=== PATIENT | male | born 1985 | race African-American/Black ===

== ENCOUNTER 2021-09-06 10:46 | Emergency (ER) | payer MEDICAID ==
[~2021-09-06] VITALS: Ht 182.9 cm; Wt 99.8 kg
--- NOTE | 2021-09-06 10:46 | NUR ---
PT BIB SELF "Having Suicidal Thoughts- went to [facility] was sent here for clearance" PT IS AAOX4, NOT IN RESPIRATORY DISTRESS, V/S STABLE, KEPT RESTED AND COMFORTABLE. WILL CONTINUE TO MONITOR.
--- NOTE | 2021-09-06 10:55 | NUR ---
SEEN AND EXMAINED BY .
--- NOTE | 2021-09-06 11:00 | NUR ---
URINE COLLECTED AND SENT TO LAB
--- NOTE | 2021-09-06 11:06 | NUR ---
COVID SWAB DONE AND SENT TO LAB
[2021-09-06 11:19] LABS: BASOPHILS % (AUTO) 1.2 % (0.0-2.0); EOSINOPHILS % (AUTO) 1.7 % (0.0-6.0); HEMATOCRIT 38 % (39-51); HEMOGLOBIN 12.4 g/dL (13.5-17.5); LYMPHOCYTES # (AUTO) 1.5 K/uL (0.8-4.8); LYMPHOCYTES % (AUTO) 36.8 % (20.0-44.0); MEAN CORPUSCULAR HGB CONC 32 g/dl (31.0-36.0); MEAN CORPUSCULAR VOLUME 84 fL (80-96); MONOCYTES # (AUTO) 0.4 K/uL (0.1-1.30); MONOCYTES % (AUTO) 10.5 % (2.0-12.0); NEUTROPHILS # (AUTO) 2.1 K/uL (1.8-8.9); NEUTROPHILS % (AUTO) 49.8 % (43.0-81.0); PLATELET COUNT (AUTO) 201 K/uL (150-450); RED BLOOD CELL COUNT(AUTO) 4.54 MIL/uL (4.5-6.0); WHITE BLOOD COUNT (AUTO) 4.2 K/uL (4.3-11.0)
[2021-09-06 11:24] LABS: BILIRUBIN,URINE NEGATIVE (NEGATIVE); COLOR,URINE YELLOW (YELLOW); LEUKOCYTE ESTERASE ,URINE NEGATIVE (NEGATIVE); NITRITE, URINE NEGATIVE (NEGATIVE); PH,URINE 8.5 (5.0-8.0); PROTEIN,URINE NEGATIVE (NEGATIVE); UGLUCOSE NEGATIVE (NEGATIVE); UROBILINOGEN,URINE 0.2 EU/dL (0.2)
[2021-09-06 11:38] LABS: CALCIUM, SERUM 8.6 mg/dL (8.5-10.1); CARBON DIOXIDE 27 mmol/L (21-32); CHLORIDE 102 mmol/L (98-107); CREATININE 0.9 mg/dL (0.6-1.3); GLUCOSE 114 mg/dL (74-106); POTASSIUM 3.9 mmol/L (3.5-5.1); SODIUM SERUM 137 mmol/L (136-145); UREA NITROGEN, BLOOD 9 mg/dL (7-18)
[2021-09-06 11:46] LABS: ALANINE AMINOTRANSFERASE 43 U/L (12-78); ALBUMIN 3.8 g/dL (3.4-5.0); ALCOHOL, BLOOD < 3 mg/dL (0-0); ALKALINE PHOSPHATASE 60 U/L (46-116); ASPARTATE AMINOTRANSFERASE 26 U/L (15-37); BILIRUBIN,DIRECT 0.1 mg/dL (0.0-0.2); BILIRUBIN,TOTAL 0.3 mg/dL (0.2-1.0); TOTAL PROTEIN, SERUM 7.3 g/dL (6.4-8.2)
[2021-09-06 12:05] LABS: ACETAMINOPHEN 0 ug/ml (10-30)
--- NOTE | 2021-09-06 12:37 | NUR ---
FAXED CLINICALS TO [facility]
--- NOTE | 2021-09-06 13:00 | NUR ---
Lunch Served. Tolerated well. Ate 100%
--- NOTE | 2021-09-06 21:48 | NUR ---
PT ACCEPTED TO [facility] [place] [facility]. DR. BUNN RN IJ, NUMBER FOR REPORT IS [phone] EXT [phone].
--- NOTE | 2021-09-06 22:38 | NUR ---
ETA FOR TRANSPORT IS 60 MINS VIA [facility].
--- NOTE | 2021-09-06 22:57 | NUR ---
REPORT GIVEN TO SANCHEZ AT [facility]
[2021-09-07] VITALS: BP 132/77
--- NOTE | 2021-09-07 | NUR ---
PT PICKED UP BY [facility] FOR TRANSPORT TO [facility]. ALL BELONGINGS AND PT PAPERWORK TRANSFERRED WITH PATIENT.
== END 2021-09-07 00:09 ==
LOC: ER 10:56
DX: R45.851 Suicidal ideations (principal); Z59.00 Homelessness unspecified; Z20.822 Contact with and (suspected) exposure to COVID-19
CPT/HCPCS: 36415; 80048; 80076; 80143; 80307; 80320; 81003; 85025; 87426; 99285; C9803; G0480

== ENCOUNTER 2021-10-17 17:45 | Emergency (ER) | payer MEDICAID ==
[~2021-10-17] VITALS: Ht 185.4 cm; Wt 104.3 kg
[2021-10-17 19:02] LABS: BILIRUBIN,URINE NEGATIVE (NEGATIVE); COLOR,URINE YELLOW (YELLOW); LEUKOCYTE ESTERASE ,URINE NEGATIVE (NEGATIVE); NITRITE, URINE NEGATIVE (NEGATIVE); PH,URINE 7.5 (5.0-8.0); PROTEIN,URINE NEGATIVE (NEGATIVE); UGLUCOSE NEGATIVE (NEGATIVE); UROBILINOGEN,URINE 0.2 EU/dL (0.2)
[2021-10-17 19:17] LABS: CALCIUM, SERUM 8.7 mg/dL (8.5-10.1); CARBON DIOXIDE 28 mmol/L (21-32); CHLORIDE 103 mmol/L (98-107); GLUCOSE 94 mg/dL (74-106); POTASSIUM 4.3 mmol/L (3.5-5.1); SODIUM SERUM 136 mmol/L (136-145); UREA NITROGEN, BLOOD 16 mg/dL (7-18)
[2021-10-17 19:23] LABS: ALANINE AMINOTRANSFERASE 44 U/L (12-78); ALBUMIN 3.9 g/dL (3.4-5.0); ALCOHOL, BLOOD < 3 mg/dL (0-0); ALKALINE PHOSPHATASE 62 U/L (46-116); ASPARTATE AMINOTRANSFERASE 19 U/L (15-37); BILIRUBIN,DIRECT 0.1 mg/dL (0.0-0.2); BILIRUBIN,TOTAL 0.1 mg/dL (0.2-1.0); TOTAL PROTEIN, SERUM 7.3 g/dL (6.4-8.2)
[2021-10-17 19:58] LABS: BASOPHILS % (AUTO) 0.9 % (0.0-2.0); EOSINOPHILS % (AUTO) 1.4 % (0.0-6.0); HEMATOCRIT 41 % (39-51); HEMOGLOBIN 13.2 g/dL (13.5-17.5); LYMPHOCYTES # (AUTO) 2.3 K/uL (0.8-4.8); LYMPHOCYTES % (AUTO) 47.8 % (20.0-44.0); MEAN CORPUSCULAR HGB CONC 32 g/dl (31.0-36.0); MEAN CORPUSCULAR VOLUME 84 fL (80-96); MONOCYTES # (AUTO) 0.4 K/uL (0.1-1.30); MONOCYTES % (AUTO) 9.1 % (2.0-12.0); NEUTROPHILS # (AUTO) 1.9 K/uL (1.8-8.9); NEUTROPHILS % (AUTO) 40.8 % (43.0-81.0); PLATELET COUNT (AUTO) 287 K/uL (150-450); RED BLOOD CELL COUNT(AUTO) 4.95 MIL/uL (4.5-6.0); WHITE BLOOD COUNT (AUTO) 4.8 K/uL (4.3-11.0)
--- NOTE | 2021-10-17 20:00 | NUR ---
PATIENT BIBSELF C/O FEELING SUICIDAL PLAN TO "OVERDOSE ON AMPETHAMINES" WANTS VOL PSYCH ADMIT. PATIENT IS A/O X 4, RR EVEN AND UNLABORED, NO SOB NOTED. PATIENT IN ER BED 18. PT WITH HOSPITAL GOWN, BELONGINGS IN PATIENT LOCKER ROOM. PATIENT VSS. WILL CONTINUE TO MONITOR.
[2021-10-17 20:22] LABS: ACETAMINOPHEN < 0 ug/ml (10-30)
--- NOTE | 2021-10-17 21:45 | NUR ---
FACESHEET AND CLINICALS FAXED TO [facility].
--- NOTE | 2021-10-17 23:45 | NUR ---
PT IS ACCETED AT [facility] UNDER THE CARE OF DR. AGUILAR. CALL [phone] EXT [phone] FOR REPORT.
--- NOTE | 2021-10-18 01:12 | NUR ---
[facility] WILL BE TRANSPORTING THE PT IN ABOUT 30 MINS TO COUNT[facility]
--- NOTE | 2021-10-18 01:22 | NUR ---
REPORT GIVENM TO CELINA AT [facility]
--- NOTE | 2021-10-18 01:50 | NUR ---
[facility] AT BEDSIDE PT BEING TRANSFERRED TO [facility] IN STABLE CONDITION.
--- NOTE | 2021-10-18 03:16 | NUR ---
Raphael sykes in [facility] - 10/18/21 at 0326 by GIDEON URINE COLLECTED AND SENT TO LAB
[2021-10-18 03:27] VITALS: BP 139/77
== END 2021-10-18 02:00 ==
LOC: ER 18:19
DX: R45.851 Suicidal ideations (principal); Z59.00 Homelessness unspecified; F17.200 Nicotine dependence, unspecified, uncomplicated; Z88.0 Allergy status to penicillin; F43.10 Post-traumatic stress disorder, unspecified; F32.A Depression, unspecified; Z20.822 Contact with and (suspected) exposure to COVID-19
CPT/HCPCS: 36415; 80048; 80076; 80143; 80307; 80320; 81003; 85025; 87426; 99285; C9803; G0480

== ENCOUNTER 2021-11-23 12:37 | Emergency (ER) | payer MEDICAID ==
[~2021-11-23] VITALS: Ht 185.4 cm; Wt 99.8 kg
--- NOTE | 2021-11-23 12:44 | NUR ---
DR HENRY AT BEDSIDE
--- NOTE | 2021-11-23 12:45 | NUR ---
URINE SAMPLE COLLECTED AND SENT TO LAB
--- NOTE | 2021-11-23 12:58 | NUR ---
ER PHLEB AT BEDSIDE FOR BLOOD DRAW.
--- NOTE | 2021-11-23 12:58 | NUR ---
COVID SWAB DONE AND SENT
--- NOTE | 2021-11-23 13:10 | NUR ---
SECURITY AT BEDSIDE FOR WANDING.
[2021-11-23 13:17] LABS: BASOPHILS # (AUTO) 0.1 K/uL (0.0-0.2); BASOPHILS % (AUTO) 1.4 % (0.0-2.0); EOSINOPHILS % (AUTO) 2.1 % (0.0-6.0); HEMATOCRIT 41 % (39-51); HEMOGLOBIN 13.2 g/dL (13.5-17.5); LYMPHOCYTES # (AUTO) 1.9 K/uL (0.8-4.8); LYMPHOCYTES % (AUTO) 44.8 % (20.0-44.0); MEAN CORPUSCULAR HGB CONC 33 g/dl (31.0-36.0); MEAN CORPUSCULAR VOLUME 81 fL (80-96); MONOCYTES # (AUTO) 0.3 K/uL (0.1-1.30); MONOCYTES % (AUTO) 8.1 % (2.0-12.0); NEUTROPHILS # (AUTO) 1.8 K/uL (1.8-8.9); NEUTROPHILS % (AUTO) 43.6 % (43.0-81.0); PLATELET COUNT (AUTO) 285 K/uL (150-450); RED BLOOD CELL COUNT(AUTO) 5.01 MIL/uL (4.5-6.0); WHITE BLOOD COUNT (AUTO) 4.2 K/uL (4.3-11.0)
[2021-11-23 13:22] LABS: CALCIUM, SERUM 9.1 mg/dL (8.5-10.1); CARBON DIOXIDE 30 mmol/L (21-32); CHLORIDE 103 mmol/L (98-107); GLUCOSE 92 mg/dL (74-106); POTASSIUM 3.6 mmol/L (3.5-5.1); SODIUM SERUM 141 mmol/L (136-145); UREA NITROGEN, BLOOD 8 mg/dL (7-18)
[2021-11-23 13:25] LABS: BILIRUBIN,URINE NEGATIVE (NEGATIVE); COLOR,URINE YELLOW (YELLOW); LEUKOCYTE ESTERASE ,URINE NEGATIVE (NEGATIVE); NITRITE, URINE NEGATIVE (NEGATIVE); PH,URINE 8.5 (5.0-8.0); PROTEIN,URINE TRACE mg/dl (NEGATIVE); UGLUCOSE NEGATIVE (NEGATIVE); UROBILINOGEN,URINE 0.2 EU/dL (0.2)
[2021-11-23 13:29] LABS: ALANINE AMINOTRANSFERASE 24 U/L (12-78); ALBUMIN 3.9 g/dL (3.4-5.0); ALCOHOL, BLOOD < 3 mg/dL (0-0); ALKALINE PHOSPHATASE 78 U/L (46-116); ASPARTATE AMINOTRANSFERASE 16 U/L (15-37); BILIRUBIN,DIRECT 0.1 mg/dL (0.0-0.2); BILIRUBIN,TOTAL 0.4 mg/dL (0.2-1.0); TOTAL PROTEIN, SERUM 7.2 g/dL (6.4-8.2)
[2021-11-23 13:31] LABS: ACETAMINOPHEN < 2 ug/ml (10-30)
[2021-11-23 13:39] LABS: BACTERIA,URINE Few /HPF (None Seen); RBC,URINE 0-2 /HPF (0-2); SQUAMOUS EPITHELIAL CELL,UR Many /HPF (None Seen); WBC,URINE 0-2 /HPF (0-3)
[2021-11-23] MEDS ORDERED: QUETIAPINE FUMARATE 100 MG TABLET PO STA (15:37)
[2021-11-23] MEDS ORDERED: QUETIAPINE FUMARATE 100 MG TABLET ONE (15:43)
--- NOTE | 2021-11-23 17:41 | NUR ---
DINNER TRAY PROVIDED.
--- NOTE | 2021-11-24 00:42 | NUR ---
FACESHEET AND CLINICALS FAXED TO [facility].
--- NOTE | 2021-11-24 08:40 | NUR ---
CALLED [facility] INTAKE NO BED AVAILABILITY AT THIS TIME CHECK AFTER 1129 SPOKE WITH NOVEMBER.
--- NOTE | 2021-11-24 10:39 | NUR ---
Still no beds available at [facility]. Clinicals are also faxed to [facility] [fax: [phone]].
--- NOTE | 2021-11-24 11:12 | NUR ---
[facility] INTAKE OF [facility], ASKED FOR CLINICALS AND WILL CALL BACK FOR ACCEPTANCE AND SOOM AVAILABILITY
--- NOTE | 2021-11-24 11:43 | NUR ---
PT ACCEPTED TO [facility] UNDER DR. PEREZ PLEASE CALL [phone] FOR REPORT TRANSPORT WILL BE HERE AT 1600
--- NOTE | 2021-11-24 11:56 | NUR ---
LUNCH TRAY PROVIDED. TOLERATED WELL
--- NOTE | 2021-11-24 12:36 | NUR ---
PATIENT VERBALIZED "I'M NOT SUICIDAL NOW, I'M OK"
--- NOTE | 2021-11-24 12:43 | NUR ---
Patient given written and verbal discharge instructions. Patient verbalizes understanding of instructions. Patient is ambulatory with steady gait. Refuses offer of custodial placement. Patient given list of available shelters in surrounding area. All belongings given back to patient. In proper clothing upon discharge. Name band removed
[2021-11-24 12:46] VITALS: BP 134/72
== END 2021-11-24 12:46 | disposition home or self-care (01) ==
LOC: ER 12:45
DX: R45.851 Suicidal ideations (principal); Z59.00 Homelessness unspecified; F32.9 Major depressive disorder, single episode, unspecified; F43.10 Post-traumatic stress disorder, unspecified; Z88.0 Allergy status to penicillin; Z20.822 Contact with and (suspected) exposure to COVID-19
CPT/HCPCS: 36415; 80048; 80076; 80143; 80307; 80320; 81001; 85025; 87426; 99285; C9803; G0480

== ENCOUNTER 2022-01-18 19:20 | Emergency (ER) | payer MEDICAID ==
[~2022-01-18] VITALS: Ht 175.3 cm; Wt 81.6 kg
--- NOTE | 2022-01-18 20:05 | NUR ---
TO ER BED 18. BIBSELF C/O +SI WANTING VOL PSYCH ADMIT. PT CHANGED INTO GOWN. ALL BELONGINGS OBTAINED AND SECURED IN LOCKER. SAFETY PRECAUTIONS IN PLACE. 1:1 SITTER. CONNECTED TO MONITOR. AWAITING MD ERVIN
--- NOTE | 2022-01-18 20:05 | NUR ---
LAB AT BEDSIDE
[2022-01-18 20:17] LABS: BASOPHILS # (AUTO) 0.1 K/uL (0.0-0.2); BASOPHILS % (AUTO) 1.2 % (0.0-2.0); EOSINOPHILS % (AUTO) 3.5 % (0.0-6.0); HEMATOCRIT 41 % (39-51); HEMOGLOBIN 13.5 g/dL (13.5-17.5); LYMPHOCYTES # (AUTO) 2.6 K/uL (0.8-4.8); LYMPHOCYTES % (AUTO) 48.1 % (20.0-44.0); MEAN CORPUSCULAR HGB CONC 33 g/dl (31.0-36.0); MEAN CORPUSCULAR VOLUME 81 fL (80-96); MONOCYTES # (AUTO) 0.4 K/uL (0.1-1.30); MONOCYTES % (AUTO) 6.9 % (2.0-12.0); NEUTROPHILS # (AUTO) 2.2 K/uL (1.8-8.9); NEUTROPHILS % (AUTO) 40.3 % (43.0-81.0); PLATELET COUNT (AUTO) 281 K/uL (150-450); RED BLOOD CELL COUNT(AUTO) 4.98 MIL/uL (4.5-6.0); WHITE BLOOD COUNT (AUTO) 5.4 K/uL (4.3-11.0)
[2022-01-18 20:46] LABS: ALANINE AMINOTRANSFERASE 42 U/L (12-78); ALBUMIN 3.7 g/dL (3.4-5.0); ALCOHOL, BLOOD 9 mg/dL (0-0); ALKALINE PHOSPHATASE 69 U/L (46-116); ASPARTATE AMINOTRANSFERASE 13 U/L (15-37); BILIRUBIN,DIRECT 0.1 mg/dL (0.0-0.2); BILIRUBIN,TOTAL 0.2 mg/dL (0.2-1.0); CALCIUM, SERUM 8.7 mg/dL (8.5-10.1); CARBON DIOXIDE 27 mmol/L (21-32); CHLORIDE 104 mmol/L (98-107); CREATININE 0.8 mg/dL (0.6-1.3); GLUCOSE 96 mg/dL (74-106); POTASSIUM 3.9 mmol/L (3.5-5.1); SODIUM SERUM 140 mmol/L (136-145); TOTAL PROTEIN, SERUM 7.2 g/dL (6.4-8.2); UREA NITROGEN, BLOOD 8 mg/dL (7-18)
[2022-01-18 20:54] LABS: ACETAMINOPHEN < 2 ug/ml (10-30)
[2022-01-18 21:29] LABS: BILIRUBIN,URINE NEGATIVE (NEGATIVE); COLOR,URINE YELLOW (YELLOW); LEUKOCYTE ESTERASE ,URINE NEGATIVE (NEGATIVE); NITRITE, URINE NEGATIVE (NEGATIVE); PROTEIN,URINE NEGATIVE (NEGATIVE); UGLUCOSE NEGATIVE (NEGATIVE); UROBILINOGEN,URINE 0.2 EU/dL (0.2)
--- NOTE | 2022-01-18 21:59 | NUR ---
PT IS SLEEPING, EASILY AROUSABLE. WILL CONTINUE TO MONITOR.
--- NOTE | 2022-01-18 23:03 | NUR ---
CLINICALS FAXED TO [facility]
[2022-01-19 00:58] VITALS: BP 130/76
--- NOTE | 2022-01-19 01:08 | NUR ---
ACCPETED UNDER DR FAY, [facility] SEND PT BEFORE 5AM NUMBER [phone]
--- NOTE | 2022-01-19 01:15 | NUR ---
[facility] ETA 2 HOURS.
--- NOTE | 2022-01-19 01:45 | NUR ---
REPORT GIVEN TO DAVID
--- NOTE | 2022-01-19 03:59 | NUR ---
report given to ems. pt noted with no acute distress.
--- NOTE | 2022-01-19 04:02 | NUR ---
REPORT GIVEN TO EMS AT BEDSIDE
== END 2022-01-19 05:50 | disposition home or self-care (01) ==
LOC: ER 19:21
DX: R45.851 Suicidal ideations (principal); F32.9 Major depressive disorder, single episode, unspecified; F43.10 Post-traumatic stress disorder, unspecified; F15.10 Other stimulant abuse, uncomplicated; Z59.00 Homelessness unspecified; F12.10 Cannabis abuse, uncomplicated; Z88.0 Allergy status to penicillin; Z20.822 Contact with and (suspected) exposure to COVID-19
CPT/HCPCS: 36415; 80048; 80076; 80143; 80307; 80320; 81003; 85025; 87426; 99285; C9803; G0480

== ENCOUNTER 2022-01-29 15:08 | Emergency (ER) | payer MEDICAID ==
[~2022-01-29] VITALS: Ht 185.4 cm; Wt 99.8 kg
--- NOTE | 2022-01-29 15:20 | NUR ---
security personnel at bedside for wanding
--- NOTE | 2022-01-29 15:22 | NUR ---
To ER bed 18, c/o "Suicidal Thoughts - plan to take pills", voluntary to kayli grover, cooperative, aaox3, breathing even and non labored, awaiting md orders
--- NOTE | 2022-01-29 15:23 | NUR ---
urine collected and sent to lab
--- NOTE | 2022-01-29 15:45 | NUR ---
COVID SWAB DONE AND SENT TO LAB
[2022-01-29 15:51] LABS: BASOPHILS # (AUTO) 0.1 K/uL (0.0-0.2); BASOPHILS % (AUTO) 1.1 % (0.0-2.0); EOSINOPHILS % (AUTO) 2.2 % (0.0-6.0); HEMATOCRIT 44 % (39-51); HEMOGLOBIN 14.4 g/dL (13.5-17.5); LYMPHOCYTES # (AUTO) 2.1 K/uL (0.8-4.8); LYMPHOCYTES % (AUTO) 41.2 % (20.0-44.0); MEAN CORPUSCULAR HGB CONC 33 g/dl (31.0-36.0); MEAN CORPUSCULAR VOLUME 83 fL (80-96); MONOCYTES # (AUTO) 0.4 K/uL (0.1-1.30); NEUTROPHILS # (AUTO) 2.3 K/uL (1.8-8.9); NEUTROPHILS % (AUTO) 46.5 % (43.0-81.0); PLATELET COUNT (AUTO) 248 K/uL (150-450)
[2022-01-29 16:08] LABS: BILIRUBIN,URINE NEGATIVE (NEGATIVE); COLOR,URINE YELLOW (YELLOW); LEUKOCYTE ESTERASE ,URINE NEGATIVE (NEGATIVE); NITRITE, URINE NEGATIVE (NEGATIVE); PROTEIN,URINE NEGATIVE (NEGATIVE); UGLUCOSE NEGATIVE (NEGATIVE); UROBILINOGEN,URINE 0.2 EU/dL (0.2)
[2022-01-29 16:11] LABS: CALCIUM, SERUM 8.9 mg/dL (8.5-10.1); CARBON DIOXIDE 30 mmol/L (21-32); CHLORIDE 102 mmol/L (98-107); CREATININE 0.9 mg/dL (0.6-1.3); GLUCOSE 84 mg/dL (74-106); POTASSIUM 4.2 mmol/L (3.5-5.1); SODIUM SERUM 138 mmol/L (136-145); UREA NITROGEN, BLOOD 15 mg/dL (7-18)
[2022-01-29 16:13] LABS: ALANINE AMINOTRANSFERASE 27 U/L (12-78); ALBUMIN 3.9 g/dL (3.4-5.0); ALKALINE PHOSPHATASE 79 U/L (46-116); ASPARTATE AMINOTRANSFERASE 20 U/L (15-37); BILIRUBIN,DIRECT 0.1 mg/dL (0.0-0.2); BILIRUBIN,TOTAL 0.3 mg/dL (0.2-1.0); TOTAL PROTEIN, SERUM 7.6 g/dL (6.4-8.2)
[2022-01-29 16:14] LABS: ALCOHOL, BLOOD < 3 mg/dL (0-0)
--- NOTE | 2022-01-29 18:25 | NUR ---
COVID SWAB DONE AND SENT TO LAB
[2022-01-29 18:42] VITALS: BP 139/78
--- NOTE | 2022-01-29 20:03 | NUR ---
FAXED FACESHEET AND CLINICALS TO [facility] INTAKE
--- NOTE | 2022-01-30 00:02 | NUR ---
PT ACCEPTED AT [facility] UNDER THE CARE OF DR. ORTEGA. CALL [phone] FOR REPORT.
--- NOTE | 2022-01-30 00:04 | NUR ---
75-9O MIN ETA FROM [facility]
--- NOTE | 2022-01-30 00:06 | NUR ---
REPORT GIVEN TO [facility] HERNANDEZ FOR [facility]
--- NOTE | 2022-01-30 01:30 | NUR ---
[facility] AT BEDSIDE FOR PT TRANSPORT TO [facility] IN STABLE CONDITION. PT IS AMBULATORY. ALL BELONGINGS GIVEN TO COMMUNITY SERVICE DIRECTOR. REPORT GIVEN WELL.
== END 2022-01-30 01:44 ==
LOC: ER 15:11
DX: R45.851 Suicidal ideations (principal); Z59.00 Homelessness unspecified; F32.A Depression, unspecified; F43.10 Post-traumatic stress disorder, unspecified; F41.9 Anxiety disorder, unspecified
CPT/HCPCS: 36415; 80048; 80076; 80143; 80307; 80320; 81003; 85025; 87426; 99285; C9803; G0480

== ENCOUNTER 2022-02-21 02:03 | Emergency (ER) | payer MEDICAID ==
[~2022-02-21] VITALS: Ht 185.4 cm; Wt 90.7 kg
--- NOTE | 2022-02-21 04:11 | NUR ---
PATIENT BIBSELF C/O +SI WITH NO PLAN, LOOKING FOR VOLUNTARY PSYCH ADMIT. PATIENT TAKEN TO ER BED 18. PATIENT VSS, NO SOB NOTED, RR EVEN AND UNLABORED. NO ACUTE DISTRESS NOTED. ER EMT, REVENUE COORDINATOR ER SECURITY AT BEDSIDE FOR WANDING. PATIENT BELONGINGS TAKEN AND PLACED IN LOCKER. PATIENT PLACED IN HOSPITAL. WILL CONTINUE TO MONITOR.
--- NOTE | 2022-02-21 04:15 | NUR ---
URINE COLLECTED SENT TO LAB
--- NOTE | 2022-02-21 04:18 | NUR ---
COVID SWAB COLLECTED AND SENT TO LAB
[2022-02-21 06:05] LABS: BASOPHILS # (AUTO) 0.1 K/uL (0.0-0.2); EOSINOPHILS % (AUTO) 2.6 % (0.0-6.0); HEMATOCRIT 40 % (39-51); HEMOGLOBIN 13.3 g/dL (13.5-17.5); LYMPHOCYTES # (AUTO) 2.7 K/uL (0.8-4.8); LYMPHOCYTES % (AUTO) 41.1 % (20.0-44.0); MEAN CORPUSCULAR HGB CONC 33 g/dl (31.0-36.0); MEAN CORPUSCULAR VOLUME 83 fL (80-96); MONOCYTES # (AUTO) 0.8 K/uL (0.1-1.30); MONOCYTES % (AUTO) 11.4 % (2.0-12.0); NEUTROPHILS # (AUTO) 2.9 K/uL (1.8-8.9); NEUTROPHILS % (AUTO) 43.9 % (43.0-81.0); PLATELET COUNT (AUTO) 216 K/uL (150-450); RED BLOOD CELL COUNT(AUTO) 4.84 MIL/uL (4.5-6.0); WHITE BLOOD COUNT (AUTO) 6.6 K/uL (4.3-11.0)
[2022-02-21 06:18] LABS: BILIRUBIN,URINE SMALL (NEGATIVE); COLOR,URINE ORANGE (YELLOW); LEUKOCYTE ESTERASE ,URINE NEGATIVE (NEGATIVE); NITRITE, URINE NEGATIVE (NEGATIVE); PH,URINE 6.5 (5.0-8.0); PROTEIN,URINE 30 mg/dl (NEGATIVE); UGLUCOSE NEGATIVE (NEGATIVE); UROBILINOGEN,URINE 0.2 EU/dL (0.2)
[2022-02-21 06:37] LABS: BACTERIA,URINE Few /HPF (None Seen); RBC,URINE 0-2 /HPF (0-2)
[2022-02-21 06:46] LABS: ALANINE AMINOTRANSFERASE 39 U/L (12-78); ALBUMIN 4.4 g/dL (3.4-5.0); ALKALINE PHOSPHATASE 83 U/L (46-116); ASPARTATE AMINOTRANSFERASE 66 U/L (15-37); BILIRUBIN,DIRECT 0.2 mg/dL (0.0-0.2); CARBON DIOXIDE 25 mmol/L (21-32); CHLORIDE 100 mmol/L (98-107); CREATININE 1.1 mg/dL (0.6-1.3); GLUCOSE 93 mg/dL (74-106); POTASSIUM 3.3 mmol/L (3.5-5.1); SODIUM SERUM 137 mmol/L (136-145); UREA NITROGEN, BLOOD 15 mg/dL (7-18)
[2022-02-21 06:54] LABS: ACETAMINOPHEN 0 ug/ml (10-30); ALCOHOL, BLOOD < 3 mg/dL (0-0)
--- NOTE | 2022-02-21 09:25 | NUR ---
FAXED CLINICALS TO [facility] INTAKE.
[2022-02-21 10:20] VITALS: BP 127/77
--- NOTE | 2022-02-21 10:27 | NUR ---
patient picked up by [facility] in no distress.
== END 2022-02-21 10:27 ==
LOC: ER 02:11
DX: R45.851 Suicidal ideations (principal); Z59.00 Homelessness unspecified; Z88.0 Allergy status to penicillin; Z86.59 Personal history of other mental and behavioral disorders; Z20.822 Contact with and (suspected) exposure to COVID-19
CPT/HCPCS: 99285; 85025; 80048; 87086; 80076; 81001; 36415; 87426; 80143; 80320; 80307; C9803; G0480

== ENCOUNTER 2022-03-06 23:56 | Emergency (ER) | payer MEDICAID ==
[~2022-03-06] VITALS: Ht 177.8 cm; Wt 83.9 kg
[2022-03-07] MEDS ORDERED: OLANZAPINE 5 MG TABLET ONE (01:47)
--- NOTE | 2022-03-07 01:50 | NUR ---
URINE SAMPLE COLLECTED AND SENT TO LAB
--- NOTE | 2022-03-07 01:50 | NUR ---
COVID SWAB COLLECTED AND SENT TO LAB
[2022-03-07] MEDS ORDERED: OLANZAPINE 5 MG TABLET PO ONE (02:00)
[2022-03-07 02:41] LABS: BASOPHILS # (AUTO) 0.1 K/uL (0.0-0.2); BASOPHILS % (AUTO) 1.2 % (0.0-2.0); EOSINOPHILS % (AUTO) 4.9 % (0.0-6.0); HEMATOCRIT 38 % (39-51); HEMOGLOBIN 12.3 g/dL (13.5-17.5); LYMPHOCYTES # (AUTO) 2.4 K/uL (0.8-4.8); LYMPHOCYTES % (AUTO) 40.6 % (20.0-44.0); MEAN CORPUSCULAR HGB CONC 33 g/dl (31.0-36.0); MEAN CORPUSCULAR VOLUME 83 fL (80-96); MONOCYTES # (AUTO) 0.6 K/uL (0.1-1.30); MONOCYTES % (AUTO) 10.8 % (2.0-12.0); NEUTROPHILS # (AUTO) 2.5 K/uL (1.8-8.9); NEUTROPHILS % (AUTO) 42.5 % (43.0-81.0); PLATELET COUNT (AUTO) 221 K/uL (150-450); RED BLOOD CELL COUNT(AUTO) 4.53 MIL/uL (4.5-6.0); WHITE BLOOD COUNT (AUTO) 5.8 K/uL (4.3-11.0)
[2022-03-07 02:42] LABS: BILIRUBIN,URINE NEGATIVE (NEGATIVE); COLOR,URINE YELLOW (YELLOW); LEUKOCYTE ESTERASE ,URINE NEGATIVE (NEGATIVE); NITRITE, URINE NEGATIVE (NEGATIVE); PH,URINE 6.5 (5.0-8.0); PROTEIN,URINE NEGATIVE (NEGATIVE); UGLUCOSE NEGATIVE (NEGATIVE); UROBILINOGEN,URINE 0.2 EU/dL (0.2)
[2022-03-07 03:02] LABS: CARBON DIOXIDE 28 mmol/L (21-32); CHLORIDE 101 mmol/L (98-107); CREATININE 1.1 mg/dL (0.6-1.3); GLUCOSE 113 mg/dL (74-106); POTASSIUM 3.5 mmol/L (3.5-5.1); SODIUM SERUM 136 mmol/L (136-145); UREA NITROGEN, BLOOD 10 mg/dL (7-18)
[2022-03-07 03:08] LABS: ALANINE AMINOTRANSFERASE 39 U/L (12-78); ALBUMIN 3.3 g/dL (3.4-5.0); ALKALINE PHOSPHATASE 72 U/L (46-116); ASPARTATE AMINOTRANSFERASE 35 U/L (15-37); BILIRUBIN,DIRECT 0.1 mg/dL (0.0-0.2); BILIRUBIN,TOTAL 0.4 mg/dL (0.2-1.0); TOTAL PROTEIN, SERUM 6.4 g/dL (6.4-8.2)
[2022-03-07 03:09] LABS: ACETAMINOPHEN 0 ug/ml (10-30); ALCOHOL, BLOOD < 3 mg/dL (0-0)
--- NOTE | 2022-03-07 03:48 | NUR ---
FACESHEET AND CLINICALS FAXED TO [facility].
--- NOTE | 2022-03-07 05:13 | NUR ---
PT ACCEPTED TO [facility] BY DR EMMANUEL. # FOR REPORT [phone]
--- NOTE | 2022-03-07 05:52 | NUR ---
[facility] CALLED FOR BLS TO [facility] ETA 60-70 MIN
--- NOTE | 2022-03-07 06:11 | NUR ---
REPORT GIVEN TO DAVID BECKWITH FOR CONTINUATION OF CARE.
[2022-03-07 07:40] VITALS: BP 136/74
--- NOTE | 2022-03-07 09:50 | NUR ---
PICKED UP BY TRANSPORT IN STABLE CONDITION
== END 2022-03-07 10:11 ==
LOC: ER 03-07 00:07
DX: R45.851 Suicidal ideations (principal); F19.10 Other psychoactive substance abuse, uncomplicated; F32.A Depression, unspecified; F43.10 Post-traumatic stress disorder, unspecified; Z59.00 Homelessness unspecified; Z20.822 Contact with and (suspected) exposure to COVID-19
CPT/HCPCS: 99285; 85025; 80048; 80076; 81003; 36415; 87426; 80143; 80320; 80307; C9803; G0480

== ENCOUNTER 2022-03-20 09:30 | Emergency (ER) | payer MEDICAID ==
[~2022-03-20] VITALS: Ht 185.4 cm; Wt 102.1 kg
--- NOTE | 2022-03-20 09:58 | NUR ---
BIBS FOR VOLUNTARY ADMISSION TO [facility] WITH SI PLAN TO OD ON PILLS. TO ER BED 18, HOOKED TO MONITOR, CHANGED TO HOSP GOWN, WARM BLANKET PROVIDED. SUICIDE PRECAUTIONS APPLIED. AWAITING MD ERVIN.
--- NOTE | 2022-03-20 10:00 | NUR ---
SECURITY AT BEDSIDE FOR WANDING
[2022-03-20 10:24] LABS: BASOPHILS # (AUTO) 0.1 K/uL (0.0-0.2); BASOPHILS % (AUTO) 1.2 % (0.0-2.0); EOSINOPHILS % (AUTO) 1.8 % (0.0-6.0); HEMATOCRIT 40 % (39-51); LYMPHOCYTES # (AUTO) 2.5 K/uL (0.8-4.8); LYMPHOCYTES % (AUTO) 52.3 % (20.0-44.0); MEAN CORPUSCULAR HGB CONC 32 g/dl (31.0-36.0); MEAN CORPUSCULAR VOLUME 85 fL (80-96); MONOCYTES # (AUTO) 0.3 K/uL (0.1-1.30); MONOCYTES % (AUTO) 6.7 % (2.0-12.0); NEUTROPHILS # (AUTO) 1.8 K/uL (1.8-8.9); PLATELET COUNT (AUTO) 273 K/uL (150-450); RED BLOOD CELL COUNT(AUTO) 4.78 MIL/uL (4.5-6.0); WHITE BLOOD COUNT (AUTO) 4.8 K/uL (4.3-11.0)
[2022-03-20 10:26] LABS: BILIRUBIN,URINE NEGATIVE (NEGATIVE); COLOR,URINE YELLOW (YELLOW); LEUKOCYTE ESTERASE ,URINE NEGATIVE (NEGATIVE); NITRITE, URINE NEGATIVE (NEGATIVE); PROTEIN,URINE NEGATIVE (NEGATIVE); UGLUCOSE NEGATIVE (NEGATIVE); UROBILINOGEN,URINE 0.2 EU/dL (0.2)
--- NOTE | 2022-03-20 10:38 | NUR ---
SS consult requested for suicidal ideation and possible homelessness. Pt. is a 36-year-old male who was admitted to the ED on 03/20/2022 due to suicidal ideation. Upon SS consult, pt. is alert and oriented x4. Pt. presents with a depressed mood and congruent affect. Pt. presents with low speech and appears unkempt. Pt. provides appropriate eye contact and was cooperative throughout the interview. Pt. stated he was suicidal and stated he "was going to overdose on narcotics." Pt. stated he currently has suicidal ideation. Pt. denied homicidal ideation. Pt. denied visual and auditory hallucinations. Pt. stated he is diagnosed with anxiety and PTSD. program services planner explored the pt.'s current living situation. Pt. stated he is currently homeless. Pt. stated he has been homeless for four years. program services planner provided the pt. with homeless resources and referrals and the pt. accepted. Pt. denied substance use history. Plan: Upon Discharge, pt. stated he wanted to be discharged to [facility] [[address] [place] [address]]. Pt. signed homeless waiver and it was placed in the chart. SW provided the pt. with the following homeless resources: Year-round shelters: [facility] [address] [place], [place] [id number] ; [facility] [address] [place] [address]; [facility] [facility]. [facility] [address] Hygiene: [facility]: [address] [place] ; [facility] [address] [facility] ; [facility] [address] [place] . Food Resources: [place] [facility] at [facility]- [address] [place] [facility]; [facility] ([facility]) [address] [place]; [facility] [address] [facility]; [facility] [address] [facility] [place]. Mental Health resources provided: [facility] [address] [place], [place] [address] ; [facility] [address] [facility] [address], [place] [address] ; [facility] [address] [place] [address] ; [facility] [place] [address] Healthcare Clinics: [facility] [address] [facility], [address] [place]. [place] ; [facility] [address] [facility] [address] [place] [address]; [facility] [address] [place] [address] [phone]
[2022-03-20 10:43] LABS: CALCIUM, SERUM 8.8 mg/dL (8.5-10.1); CARBON DIOXIDE 31 mmol/L (21-32); CHLORIDE 106 mmol/L (98-107); GLUCOSE 94 mg/dL (74-106); POTASSIUM 3.9 mmol/L (3.5-5.1); SODIUM SERUM 141 mmol/L (136-145); UREA NITROGEN, BLOOD 5 mg/dL (7-18)
[2022-03-20 10:51] LABS: ALANINE AMINOTRANSFERASE 37 U/L (12-78); ALCOHOL, BLOOD < 3 mg/dL (0-0); ALKALINE PHOSPHATASE 77 U/L (46-116); ASPARTATE AMINOTRANSFERASE 14 U/L (15-37); BILIRUBIN,DIRECT 0.1 mg/dL (0.0-0.2); BILIRUBIN,TOTAL 0.4 mg/dL (0.2-1.0); TOTAL PROTEIN, SERUM 7.6 g/dL (6.4-8.2)
[2022-03-20 10:52] LABS: ACETAMINOPHEN < 10 ug/ml (10-30)
--- NOTE | 2022-03-20 11:16 | NUR ---
URINE SAMPLE COLLECTED AND RAPID COVID SWAB DONE AND SENT TO LAB
--- NOTE | 2022-03-20 13:16 | NUR ---
FAXED CLINICALS TO [facility] INTAKE.
--- NOTE | 2022-03-20 15:08 | NUR ---
ACCEPTED AT [facility] UNDER DR. DONIS, ETA 1600 FOR TRANSPORT.
[2022-03-20 16:42] VITALS: BP 146/88
--- NOTE | 2022-03-20 17:15 | NUR ---
PICKED UP BY [facility] IN STABLE CONDITION. ALL BELONGINGS GIVEN TO PATIENT.
== END 2022-03-20 17:16 ==
LOC: ER 09:34
DX: R45.851 Suicidal ideations (principal); Z59.00 Homelessness unspecified; Z86.59 Personal history of other mental and behavioral disorders; Z20.822 Contact with and (suspected) exposure to COVID-19
CPT/HCPCS: 99285; 85025; 80048; 80076; 81003; 36415; 87426; 80143; 80320; 80307; C9803; G0480

== ENCOUNTER 2022-05-01 14:24 | Emergency (ER) | payer MEDICAID ==
[~2022-05-01] VITALS: Ht 185.4 cm; Wt 102.1 kg
--- NOTE | 2022-05-01 15:41 | NUR ---
TO ER BED 18, FEELING DEPRESSED AND SUICIDAL, PLAN TO OD ON PILLS,REQUESTING VOLUNTARY ADMISSION TO [facility], AAOX3, BREATHING EVEN AND NON LABORED, CHANGED INTO A GOWN, AWAITING MD ORDERS
[2022-05-01 16:20] LABS: BASOPHILS % (AUTO) 0.6 % (0.0-2.0); EOSINOPHILS % (AUTO) 2.7 % (0.0-6.0); HEMATOCRIT 34 % (39-51); HEMOGLOBIN 11.1 g/dL (13.5-17.5); LYMPHOCYTES # (AUTO) 2.3 K/uL (0.8-4.8); LYMPHOCYTES % (AUTO) 39.8 % (20.0-44.0); MEAN CORPUSCULAR HGB CONC 32 g/dl (31.0-36.0); MEAN CORPUSCULAR VOLUME 82 fL (80-96); MONOCYTES # (AUTO) 0.5 K/uL (0.1-1.30); MONOCYTES % (AUTO) 9.3 % (2.0-12.0); NEUTROPHILS # (AUTO) 2.8 K/uL (1.8-8.9); NEUTROPHILS % (AUTO) 47.6 % (43.0-81.0); PLATELET COUNT (AUTO) 240 K/uL (150-450); RED BLOOD CELL COUNT(AUTO) 4.21 MIL/uL (4.5-6.0); WHITE BLOOD COUNT (AUTO) 5.8 K/uL (4.3-11.0)
[2022-05-01 16:49] LABS: ALCOHOL, BLOOD < 3 mg/dL (0-0); ALKALINE PHOSPHATASE 76 U/L (46-116); ASPARTATE AMINOTRANSFERASE 38 U/L (15-37); BILIRUBIN,TOTAL 0.8 mg/dL (0.2-1.0); CARBON DIOXIDE 23 mmol/L (21-32); CHLORIDE 100 mmol/L (98-107); GLUCOSE 79 mg/dL (74-106); POTASSIUM 3.2 mmol/L (3.5-5.1); SODIUM SERUM 134 mmol/L (136-145); TOTAL PROTEIN, SERUM 7.6 g/dL (6.4-8.2); UREA NITROGEN, BLOOD 12 mg/dL (7-18)
[2022-05-01 17:09] LABS: ALANINE AMINOTRANSFERASE 28 U/L (12-78); ALBUMIN 3.2 g/dL (3.4-5.0); BILIRUBIN,DIRECT 0.1 mg/dL (0.0-0.2); CALCIUM, SERUM 8.9 mg/dL (8.5-10.1); CREATININE 0.9 mg/dL (0.6-1.3)
[2022-05-01 17:11] LABS: ACETAMINOPHEN 0 ug/ml (10-30)
--- NOTE | 2022-05-01 19:36 | NUR ---
FAXED CLINICALS TO [facility] INTAKE.
--- NOTE | 2022-05-01 19:41 | NUR ---
urine collected and sent to lab.
[2022-05-01 20:28] LABS: BILIRUBIN,URINE SMALL (NEGATIVE); COLOR,URINE YELLOW (YELLOW); LEUKOCYTE ESTERASE ,URINE NEGATIVE (NEGATIVE); NITRITE, URINE NEGATIVE (NEGATIVE); PROTEIN,URINE TRACE mg/dl (NEGATIVE); UGLUCOSE NEGATIVE (NEGATIVE)
[2022-05-01] MEDS ORDERED: POTASSIUM CHLORIDE 20 MEQ TAB.PRT.SR PO ONE ×2 (21:00→21:23)
[2022-05-01 21:21] LABS: BACTERIA,URINE None seen /HPF (None Seen); MUCUS,URINE Few /LPF (None Seen); RBC,URINE 0-2 /HPF (0-2); SQUAMOUS EPITHELIAL CELL,UR 0-2 /HPF (None Seen); WBC,URINE 0-2 /HPF (0-3)
--- NOTE | 2022-05-02 02:57 | NUR ---
PT ACCEPTTED AT [facility] UNDER THE CARE OF DR. ORTEGA. CALL [phone] FOR REPORT.
--- NOTE | 2022-05-02 03:07 | NUR ---
[facility] CALLED FOR BLS GOING TO [facility] PER KAMI ETA - 20 MIN
--- NOTE | 2022-05-02 03:18 | NUR ---
REPORT GIVEN TO AMENA MOONEY FOR [facility]
--- NOTE | 2022-05-02 03:26 | NUR ---
[facility] TRANSPORTING PATIENT TO PSYCH FACILITY VIA AMBULANCE
[2022-05-02 03:27] VITALS: BP 132/81
== END 2022-05-02 05:07 ==
LOC: ER 14:33
DX: R45.851 Suicidal ideations (principal); E87.6 Hypokalemia; F43.10 Post-traumatic stress disorder, unspecified; F32.A Depression, unspecified; R03.0 Elevated blood-pressure reading, without diagnosis of hypertension
CPT/HCPCS: 99285; 85025; 80048; 80076; 81001; 36415; 87426; 80143; 80320; 80307; C9803; G0480

== ENCOUNTER 2022-07-14 15:30 | Emergency (ER) | payer MEDICAID ==
[~2022-07-14] VITALS: Ht 185.4 cm; Wt 101.6 kg
--- NOTE | 2022-07-14 16:00 | NUR ---
URINE SAMPLE COLLECTED AND SENT TO LAB
--- NOTE | 2022-07-14 16:04 | NUR ---
DR CONNOLLY AT BEDSIDE
[2022-07-14 16:07] VITALS: BP 135/88
--- NOTE | 2022-07-14 16:14 | NUR ---
COVID SWAB DONE AND SENT TO LAB
--- NOTE | 2022-07-14 16:16 | NUR ---
PATIENT WANDED BY SECURITY, BELONGINGS PLACED IN LOCKER
[2022-07-14 17:13] LABS: BASOPHILS % (AUTO) 0.6 % (0.0-2.0); EOSINOPHILS % (AUTO) 3.7 % (0.0-6.0); HEMATOCRIT 33 % (39-51); HEMOGLOBIN 10.2 g/dL (13.5-17.5); LYMPHOCYTES % (AUTO) 38.4 % (20.0-44.0); MEAN CORPUSCULAR HGB CONC 31 g/dl (31.0-36.0); MEAN CORPUSCULAR VOLUME 75 fL (80-96); MONOCYTES # (AUTO) 0.6 K/uL (0.1-1.30); MONOCYTES % (AUTO) 12.3 % (2.0-12.0); NEUTROPHILS # (AUTO) 2.3 K/uL (1.8-8.9); PLATELET COUNT (AUTO) 265 K/uL (150-450); RED BLOOD CELL COUNT(AUTO) 4.37 MIL/uL (4.5-6.0); WHITE BLOOD COUNT (AUTO) 5.2 K/uL (4.3-11.0)
[2022-07-14 17:29] LABS: CALCIUM, SERUM 8.4 mg/dL (8.5-10.1); CARBON DIOXIDE 30 mmol/L (21-32); CHLORIDE 103 mmol/L (98-107); CREATININE 0.9 mg/dL (0.6-1.3); GLUCOSE 102 mg/dL (74-106); POTASSIUM 4.2 mmol/L (3.5-5.1); SODIUM SERUM 134 mmol/L (136-145); UREA NITROGEN, BLOOD 12 mg/dL (7-18)
[2022-07-14 17:33] LABS: ALANINE AMINOTRANSFERASE 23 U/L (12-78); ALBUMIN 3.4 g/dL (3.4-5.0); ALCOHOL, BLOOD < 3 mg/dL (0-0); ALKALINE PHOSPHATASE 82 U/L (46-116); ASPARTATE AMINOTRANSFERASE 20 U/L (15-37); BILIRUBIN,DIRECT 0.1 mg/dL (0.0-0.2); BILIRUBIN,TOTAL 0.2 mg/dL (0.2-1.0); TOTAL PROTEIN, SERUM 6.7 g/dL (6.4-8.2)
[2022-07-14 17:38] LABS: ACETAMINOPHEN 0 ug/ml (10-30)
[2022-07-14 17:54] LABS: BILIRUBIN,URINE NEGATIVE (NEGATIVE); COLOR,URINE YELLOW (YELLOW); LEUKOCYTE ESTERASE ,URINE NEGATIVE (NEGATIVE); NITRITE, URINE NEGATIVE (NEGATIVE); PROTEIN,URINE NEGATIVE (NEGATIVE); UGLUCOSE NEGATIVE (NEGATIVE); UROBILINOGEN,URINE 0.2 EU/dL (0.2)
--- NOTE | 2022-07-14 18:19 | NUR ---
[facility]
[2022-07-14 18:32] LABS: EOSINOPHILS % (MANUAL) 3 % (0-4); LYMPHOCYTES % (MANUAL) 47 % (16-48); MONOCYTES % (MANUAL) 7 % (0-11.0); NEUTROPHILS % (MANUAL) 43 (42-76)
--- NOTE | 2022-07-14 18:55 | NUR ---
CALLED [facility] FOR UPDATE. CLINICALS HAVE BEEN RECEIVED, AWAITING FEEDBACK FROM HOUSE SUP.
--- NOTE | 2022-07-14 22:30 | NUR ---
ACCEPTED [facility] UNDER MD PANG REPORT [phone]
--- NOTE | 2022-07-14 22:35 | NUR ---
[facility] ETA 30MIN - 1 HR
--- NOTE | 2022-07-14 22:41 | NUR ---
REPORT GIVEN TO NURSE DAVID
--- NOTE | 2022-07-14 23:23 | NUR ---
REPORT GIVEN TO EMS AT BEDSIDE
--- NOTE | 2022-07-14 23:32 | NUR ---
PT BEING TRANSFERRED TO [facility]IA [facility]
--- NOTE | 2022-07-14 23:32 | NUR ---
ALL BELONGINGS GIVEN TO [facility]
== END 2022-07-14 23:34 ==
LOC: ER 15:30
DX: R45.851 Suicidal ideations (principal); D50.9 Iron deficiency anemia, unspecified; F19.10 Other psychoactive substance abuse, uncomplicated; Z20.822 Contact with and (suspected) exposure to COVID-19; Z59.00 Homelessness unspecified; Z88.0 Allergy status to penicillin; F32.A Depression, unspecified; Z91.51 Personal history of suicidal behavior
CPT/HCPCS: 99285; 85025; 80048; 80076; 85007; 81003; 36415; 87426; 80143; 80320; 80307; C9803; G0480

== ENCOUNTER 2022-08-08 22:45 | Emergency (ER) | payer MEDICAID ==
[~2022-08-08] VITALS: Ht 185.4 cm; Wt 104.3 kg
--- NOTE | 2022-08-08 23:28 | NUR ---
PATIENT BIBSELF C/O WANTING VOL PSYCH ADMIT PLAN TO OD, -HI. PATIENT IS A/O X 4, RR EVEN AND UNLABORED NO SOB NOTED. VSS. PATIENT IS AFEBRILE. PATIENT BELONGINGS TAKEN. PATIENT PLACED IN HOSPITAL GOWN.
--- NOTE | 2022-08-08 23:32 | NUR ---
COVID SWAB COLLECTED
--- NOTE | 2022-08-09 00:28 | NUR ---
URINE COLLECTED SENT TO LAB
--- NOTE | 2022-08-09 00:28 | NUR ---
LAB AT BEDSIDE
[2022-08-09 00:37] LABS: BASOPHILS # (AUTO) 0.1 K/uL (0.0-0.2); BASOPHILS % (AUTO) 1.1 % (0.0-2.0); EOSINOPHILS % (AUTO) 4.1 % (0.0-6.0); HEMATOCRIT 33 % (39-51); HEMOGLOBIN 10.1 g/dL (13.5-17.5); LYMPHOCYTES # (AUTO) 2.2 K/uL (0.8-4.8); LYMPHOCYTES % (AUTO) 40.7 % (20.0-44.0); MEAN CORPUSCULAR HGB CONC 31 g/dl (31.0-36.0); MEAN CORPUSCULAR VOLUME 75 fL (80-96); MONOCYTES # (AUTO) 0.5 K/uL (0.1-1.30); MONOCYTES % (AUTO) 8.9 % (2.0-12.0); NEUTROPHILS # (AUTO) 2.4 K/uL (1.8-8.9); NEUTROPHILS % (AUTO) 45.2 % (43.0-81.0); PLATELET COUNT (AUTO) 280 K/uL (150-450); RED BLOOD CELL COUNT(AUTO) 4.35 MIL/uL (4.5-6.0); WHITE BLOOD COUNT (AUTO) 5.3 K/uL (4.3-11.0)
[2022-08-09 00:47] LABS: BILIRUBIN,URINE NEGATIVE (NEGATIVE); COLOR,URINE YELLOW (YELLOW); LEUKOCYTE ESTERASE ,URINE NEGATIVE (NEGATIVE); NITRITE, URINE NEGATIVE (NEGATIVE); PROTEIN,URINE NEGATIVE (NEGATIVE); UGLUCOSE NEGATIVE (NEGATIVE)
[2022-08-09 00:55] LABS: CALCIUM, SERUM 8.6 mg/dL (8.5-10.1); CARBON DIOXIDE 25 mmol/L (21-32); CHLORIDE 103 mmol/L (98-107); GLUCOSE 140 mg/dL (74-106); SODIUM SERUM 137 mmol/L (136-145); UREA NITROGEN, BLOOD 12 mg/dL (7-18)
[2022-08-09 01:05] LABS: ALANINE AMINOTRANSFERASE 22 U/L (12-78); ALCOHOL, BLOOD < 3 mg/dL (0-0); ALKALINE PHOSPHATASE 76 U/L (46-116); ASPARTATE AMINOTRANSFERASE 18 U/L (15-37); BILIRUBIN,TOTAL 0.1 mg/dL (0.2-1.0); TOTAL PROTEIN, SERUM 6.5 g/dL (6.4-8.2)
[2022-08-09 01:08] LABS: ACETAMINOPHEN < 10 ug/ml (10-30)
[2022-08-09 01:08] LABS: WBC,URINE 0-2 /HPF (0-3)
[2022-08-09 01:09] LABS: BACTERIA,URINE Rare /HPF (None Seen); RBC,URINE 0-2 /HPF (0-2); SQUAMOUS EPITHELIAL CELL,UR Few /HPF (None Seen)
[2022-08-09 01:47] LABS: BASOPHILS % (MANUAL) 0 % (0.0-2.0); EOSINOPHILS % (MANUAL) 2 % (0-4); LYMPHOCYTES % (MANUAL) 42 % (16-48); MONOCYTES % (MANUAL) 8 % (0-11.0); NEUTROPHILS % (MANUAL) 48 (42-76)
--- NOTE | 2022-08-09 03:34 | NUR ---
FACESHEET AND CLINICALS FAXED TO [facility].
--- NOTE | 2022-08-09 12:31 | NUR ---
PER [facility] INTAKE PT ACCEPTED AND AWAITING BED ASSIGNMENT
--- NOTE | 2022-08-09 16:17 | NUR ---
PER [facility]TA[facility] BED AVAILABILITY MAY BE TONIGHT OR TOMORROW MORNING WILL FOLLOW UP
--- NOTE | 2022-08-09 16:27 | NUR ---
ACCEPTED [facility], BY MD EMMANUEL NURSE REPORT [phone], [facility] ETA 1800
--- NOTE | 2022-08-09 18:00 | NUR ---
Transported to [facility] by [facility] ambulance. NO obvious distress. Stable
[2022-08-09 19:16] VITALS: BP 150/78
== END 2022-08-09 19:17 ==
LOC: ER 22:57
DX: R45.851 Suicidal ideations (principal); Z59.00 Homelessness unspecified; D64.9 Anemia, unspecified; F32.A Depression, unspecified; Z88.0 Allergy status to penicillin; Z91.51 Personal history of suicidal behavior; Z20.822 Contact with and (suspected) exposure to COVID-19; F41.9 Anxiety disorder, unspecified; F43.10 Post-traumatic stress disorder, unspecified
CPT/HCPCS: 99285; 81001; 36415; 87426; 80307; 85025; 80048; 80076; 85007; 80143; 80320; C9803; J7030; G0480

== ENCOUNTER 2022-08-18 00:23 | Emergency (ER) | payer MEDICAID ==
[~2022-08-18] VITALS: Ht 185.4 cm; Wt 90.7 kg
--- NOTE | 2022-08-18 04:03 | NUR ---
BELONGINGS TAKEN AND PLACED IN LOCKER.
--- NOTE | 2022-08-18 04:05 | NUR ---
COVID SWAB DONE AND SENT TO LAB
--- NOTE | 2022-08-18 04:05 | NUR ---
URINE DONE AND SENT TO LAB
[2022-08-18 04:38] LABS: BASOPHILS # (AUTO) 0.1 K/uL (0.0-0.2); EOSINOPHILS % (AUTO) 2.3 % (0.0-6.0); HEMATOCRIT 33 % (39-51); HEMOGLOBIN 10.3 g/dL (13.5-17.5); LYMPHOCYTES # (AUTO) 2.3 K/uL (0.8-4.8); LYMPHOCYTES % (AUTO) 35.6 % (20.0-44.0); MEAN CORPUSCULAR HGB CONC 32 g/dl (31.0-36.0); MEAN CORPUSCULAR VOLUME 75 fL (80-96); MONOCYTES # (AUTO) 0.8 K/uL (0.1-1.30); MONOCYTES % (AUTO) 12.6 % (2.0-12.0); NEUTROPHILS # (AUTO) 3.1 K/uL (1.8-8.9); NEUTROPHILS % (AUTO) 48.5 % (43.0-81.0); PLATELET COUNT (AUTO) 293 K/uL (150-450); RED BLOOD CELL COUNT(AUTO) 4.34 MIL/uL (4.5-6.0); WHITE BLOOD COUNT (AUTO) 6.4 K/uL (4.3-11.0)
[2022-08-18 04:45] LABS: BILIRUBIN,URINE NEGATIVE (NEGATIVE); COLOR,URINE YELLOW (YELLOW); LEUKOCYTE ESTERASE ,URINE NEGATIVE (NEGATIVE); NITRITE, URINE NEGATIVE (NEGATIVE); PH,URINE 7.5 (5.0-8.0); PROTEIN,URINE TRACE mg/dl (NEGATIVE); UGLUCOSE NEGATIVE (NEGATIVE)
[2022-08-18 05:06] LABS: BACTERIA,URINE Rare /HPF (None Seen); RBC,URINE 0-2 /HPF (0-2); SQUAMOUS EPITHELIAL CELL,UR Rare /HPF (None Seen); WBC,URINE 0-2 /HPF (0-3)
[2022-08-18 05:07] LABS: URINE AMORPHOUS PHOSPHATES Moderate /HPF (None Seen)
[2022-08-18 05:12] LABS: ACETAMINOPHEN 0 ug/ml (10-30); ALANINE AMINOTRANSFERASE 35 U/L (12-78); ALBUMIN 3.4 g/dL (3.4-5.0); ALCOHOL, BLOOD < 3 mg/dL (0-0); ALKALINE PHOSPHATASE 81 U/L (46-116); ASPARTATE AMINOTRANSFERASE 56 U/L (15-37); BILIRUBIN,DIRECT 0.1 mg/dL (0.0-0.2); BILIRUBIN,TOTAL 0.2 mg/dL (0.2-1.0); CALCIUM, SERUM 8.5 mg/dL (8.5-10.1); CARBON DIOXIDE 24 mmol/L (21-32); CHLORIDE 106 mmol/L (98-107); CREATININE 1.2 mg/dL (0.6-1.3); GLUCOSE 96 mg/dL (74-106); POTASSIUM 4.3 mmol/L (3.5-5.1); SODIUM SERUM 138 mmol/L (136-145); TOTAL PROTEIN, SERUM 6.8 g/dL (6.4-8.2); UREA NITROGEN, BLOOD 16 mg/dL (7-18)
--- NOTE | 2022-08-18 05:53 | NUR ---
FACESHEET AND CLINICALS FAXED TO [facility].
--- NOTE | 2022-08-18 09:38 | NUR ---
SPOKE TO [facility] AND ASKED FOR AN UPDATE. WAS INFORMED THAT THEY DID NOT RECEIVE PT'S CLINICAL PACKET. RE-FAXED PT'S CLINICAL PACKET. AWAITING CALL BACK FOR ACCEPTANCE INFO.
--- NOTE | 2022-08-18 10:17 | NUR ---
PT ACCEPTED TO [facility] UNDER DR. PEREZ. FOR REPORT CALL: NURSING SUP. LEMUS [phone] [facility] CAN'T PROVIDE TRANSPORTATION AT THIS TIME. WILL ARRANGE TRANSPORT FOR PT.
--- NOTE | 2022-08-18 10:46 | NUR ---
CALLED [facility] AND SET UP [facility] E[facility] 1135
--- NOTE | 2022-08-18 11:41 | NUR ---
Patient discharged to [facility] in stable condition. Written and verbal after care instructions given. Patient verbalizes understanding of instruction. The patient was DC via BLS ambulance.
[2022-08-18 11:43] VITALS: BP 148/68
[2022-08-18 11:52] LABS: EOSINOPHILS % (MANUAL) 1 % (0-4); LYMPHOCYTES % (MANUAL) 43 % (16-48); MONOCYTES % (MANUAL) 8 % (0-11.0); NEUTROPHILS % (MANUAL) 48 (42-76)
== END 2022-08-18 11:44 ==
LOC: ER 00:24
DX: R45.851 Suicidal ideations (principal); F15.10 Other stimulant abuse, uncomplicated; Z20.822 Contact with and (suspected) exposure to COVID-19; Z59.01 Sheltered homelessness; F43.10 Post-traumatic stress disorder, unspecified; Z88.0 Allergy status to penicillin; F32.A Depression, unspecified; F12.90 Cannabis use, unspecified, uncomplicated
CPT/HCPCS: 99285; 85025; 80048; 80076; 85007; 81001; 36415; 87426; 80143; 80320; 80307; C9803; G0480

== ENCOUNTER 2022-12-21 22:51 | Emergency (ER) | payer MEDICAID ==
[~2022-12-21] VITALS: Ht 185.4 cm; Wt 93.0 kg
[2022-12-21 23:41] VITALS: BP 144/80
--- NOTE | 2022-12-21 23:41 | NUR ---
PATRICK C/O S/I SEEKING VOLUNTARY PSYCH FACILITY
[2022-12-22 00:33] LABS: BASOPHILS # (AUTO) 0.1 K/uL (0.0-0.2); EOSINOPHILS % (AUTO) 0.5 % (0.0-6.0); HEMATOCRIT 38 % (39-51); HEMOGLOBIN 11.8 g/dL (13.5-17.5); LYMPHOCYTES # (AUTO) 1.3 K/uL (0.8-4.8); LYMPHOCYTES % (AUTO) 21.7 % (20.0-44.0); MEAN CORPUSCULAR HGB CONC 31 g/dl (31.0-36.0); MEAN CORPUSCULAR VOLUME 81 fL (80-96); MONOCYTES # (AUTO) 0.7 K/uL (0.1-1.30); MONOCYTES % (AUTO) 11.1 % (2.0-12.0); NEUTROPHILS % (AUTO) 65.7 % (43.0-81.0); PLATELET COUNT (AUTO) 254 K/uL (150-450); RED BLOOD CELL COUNT(AUTO) 4.69 MIL/uL (4.5-6.0); WHITE BLOOD COUNT (AUTO) 6.1 K/uL (4.3-11.0)
[2022-12-22 00:56] LABS: BILIRUBIN,URINE NEGATIVE (NEGATIVE); COLOR,URINE YELLOW (YELLOW); LEUKOCYTE ESTERASE ,URINE NEGATIVE (NEGATIVE); NITRITE, URINE NEGATIVE (NEGATIVE); PH,URINE 6.5 (5.0-8.0); PROTEIN,URINE NEGATIVE (NEGATIVE); UGLUCOSE NEGATIVE (NEGATIVE); UROBILINOGEN,URINE 0.2 EU/dL (0.2)
[2022-12-22 01:07] LABS: CALCIUM, SERUM 9.1 mg/dL (8.5-10.1); CARBON DIOXIDE 26 mmol/L (21-32); CHLORIDE 104 mmol/L (98-107); GLUCOSE 131 mg/dL (74-106); POTASSIUM 4.2 mmol/L (3.5-5.1); SODIUM SERUM 139 mmol/L (136-145); UREA NITROGEN, BLOOD 16 mg/dL (7-18)
[2022-12-22 01:12] LABS: ALANINE AMINOTRANSFERASE 24 U/L (12-78); ALBUMIN 3.6 g/dL (3.4-5.0); ALKALINE PHOSPHATASE 73 U/L (46-116); ASPARTATE AMINOTRANSFERASE 16 U/L (15-37); BILIRUBIN,TOTAL 0.2 mg/dL (0.2-1.0)
--- NOTE | 2022-12-22 01:19 | NUR ---
COVID SWAB DONE AND SENT TO LAB
[2022-12-22 01:21] LABS: ALCOHOL, BLOOD < 3 mg/dL (0-0)
[2022-12-22 01:38] LABS: BILIRUBIN,DIRECT 0.1 mg/dL (0.0-0.2)
--- NOTE | 2022-12-22 02:54 | NUR ---
FAXED CLINICALS TO [facility]
--- NOTE | 2022-12-22 05:39 | NUR ---
REPORT GIVEN TO [facility] UNIT 375. PT IS GOING TO [facility]. PATIENT IS AWAKE, AMBULATORY, GATHERING HIS BELONGINGS.
--- NOTE | 2022-12-22 05:46 | NUR ---
PT WAS TRANSFERRED TO [facility] IN STABEL CONDITION. BELONGINGS WERE PICKED UP
== END 2022-12-22 05:49 ==
LOC: ER 22:55
DX: R45.851 Suicidal ideations (principal); F17.200 Nicotine dependence, unspecified, uncomplicated; Z59.00 Homelessness unspecified; Z20.822 Contact with and (suspected) exposure to COVID-19; Z88.0 Allergy status to penicillin
CPT/HCPCS: 99285; 85025; 80048; 80076; 81003; 36415; 80143; 80320; 80307; 87426; C9803; G0480

== ENCOUNTER 2022-12-29 20:19 | Emergency (ER) | payer MEDICAID ==
--- NOTE | 2022-12-29 21:26 | NUR ---
called to triage, not in wating room
== END 2022-12-29 21:28 | disposition left against medical advice (07) ==
LOC: ER 20:28
DX: Z53.21 Procedure and treatment not carried out due to patient leaving prior to being seen by health care provider (principal)

== ENCOUNTER 2022-12-30 14:52 | Emergency (ER) | payer MEDICAID ==
[~2022-12-30] VITALS: Ht 170.2 cm; Wt 54.4 kg
--- NOTE | 2022-12-30 15:07 | NUR ---
COVID SWAB COLLECTED AND SENT TO LAB
--- NOTE | 2022-12-30 15:07 | NUR ---
URINE SAMPLE COLLECTED AND SENT TO LAB
[2022-12-30] MEDS ORDERED: AMLODIPINE BESYLATE 5 MG TABLET ONE (15:49)
[2022-12-30 15:50] VITALS: BP 162/83
[2022-12-30 15:51] LABS: BASOPHILS # (AUTO) 0.2 K/uL (0.0-0.2); BASOPHILS % (AUTO) 2.2 % (0.0-2.0); HEMATOCRIT 38 % (39-51); HEMOGLOBIN 11.9 g/dL (13.5-17.5); LYMPHOCYTES # (AUTO) 2.5 K/uL (0.8-4.8); MEAN CORPUSCULAR HGB CONC 32 g/dl (31.0-36.0); MEAN CORPUSCULAR VOLUME 81 fL (80-96); MONOCYTES # (AUTO) 0.6 K/uL (0.1-1.30); MONOCYTES % (AUTO) 8.1 % (2.0-12.0); NEUTROPHILS # (AUTO) 3.6 K/uL (1.8-8.9); NEUTROPHILS % (AUTO) 50.7 % (43.0-81.0); PLATELET COUNT (AUTO) 252 K/uL (150-450); RED BLOOD CELL COUNT(AUTO) 4.64 MIL/uL (4.5-6.0); WHITE BLOOD COUNT (AUTO) 7.1 K/uL (4.3-11.0)
[2022-12-30] MEDS ORDERED: AMLODIPINE BESYLATE 5 MG TABLET PO ONE (16:00)
[2022-12-30 16:03] LABS: BILIRUBIN,URINE NEGATIVE (NEGATIVE); COLOR,URINE YELLOW (YELLOW); LEUKOCYTE ESTERASE ,URINE NEGATIVE (NEGATIVE); NITRITE, URINE NEGATIVE (NEGATIVE); PH,URINE 7.5 (5.0-8.0); PROTEIN,URINE NEGATIVE (NEGATIVE); UGLUCOSE NEGATIVE (NEGATIVE); UROBILINOGEN,URINE 0.2 EU/dL (0.2)
[2022-12-30 16:26] LABS: CALCIUM, SERUM 9.2 mg/dL (8.5-10.1); CARBON DIOXIDE 27 mmol/L (21-32); CHLORIDE 107 mmol/L (98-107); CREATININE 1.2 mg/dL (0.6-1.3); GLUCOSE 76 mg/dL (74-106); POTASSIUM 3.8 mmol/L (3.5-5.1); SODIUM SERUM 143 mmol/L (136-145); UREA NITROGEN, BLOOD 18 mg/dL (7-18)
[2022-12-30 16:34] LABS: ALANINE AMINOTRANSFERASE 30 U/L (12-78); ALBUMIN 4.1 g/dL (3.4-5.0); ALKALINE PHOSPHATASE 83 U/L (46-116); ASPARTATE AMINOTRANSFERASE 13 U/L (15-37); BILIRUBIN,DIRECT 0.1 mg/dL (0.0-0.2); BILIRUBIN,TOTAL 0.3 mg/dL (0.2-1.0); TOTAL PROTEIN, SERUM 7.5 g/dL (6.4-8.2)
[2022-12-30 16:36] LABS: ALCOHOL, BLOOD < 3 mg/dL (0-10)
--- NOTE | 2022-12-30 19:30 | NUR ---
FAXED CLINICALS TO [facility].
--- NOTE | 2022-12-30 20:00 | NUR ---
Patient in room, no signs of distress or discomfort. Will continue to monitor throughout shift.
--- NOTE | 2022-12-30 21:01 | NUR ---
ACCEPTED AT [facility] UNDER CARE OF DR PEREZ
--- NOTE | 2022-12-30 22:32 | NUR ---
TRANSFERRED TO [facility]. [facility]ICE[facility]O PICKED UP
== END 2022-12-30 22:32 ==
LOC: ER 14:54
DX: R45.851 Suicidal ideations (principal); I10 Essential (primary) hypertension; F20.9 Schizophrenia, unspecified; F17.200 Nicotine dependence, unspecified, uncomplicated; Z88.0 Allergy status to penicillin; Z59.00 Homelessness unspecified; Z20.822 Contact with and (suspected) exposure to COVID-19
CPT/HCPCS: 99285; 93005 ×2; 85025; 80048; 80076; 81003; 36415; 84484; 87426; 80143; 80320; 80307; C9803; G0480

== ENCOUNTER 2023-01-15 13:17 | Emergency (ER) | payer MEDICAID ==
[~2023-01-15] VITALS: Ht 185.4 cm; Wt 89.8 kg
--- NOTE | 2023-01-15 13:39 | NUR ---
REQUESTING VOLUNTARY PSYCH ADMISSION TO [facility].+SI: OD ON DRUGS. PT IS BREATHING EVEN AND UNLABORED. NOT IN ACUTE DISTRESS. BELONGINGS ISOLATION AND WANDING DONE.
--- NOTE | 2023-01-15 13:40 | NUR ---
URINE SAMPLE COLLECTED AND SENT TO LAB
--- NOTE | 2023-01-15 13:40 | NUR ---
COVID SWAB COLLECTED AND SENT TO LAB
[2023-01-15 14:15] LABS: BASOPHILS # (AUTO) 0.1 K/uL (0.0-0.2); BASOPHILS % (AUTO) 1.3 % (0.0-2.0); EOSINOPHILS % (AUTO) 4.4 % (0.0-6.0); HEMATOCRIT 41 % (39-51); HEMOGLOBIN 13.2 g/dL (13.5-17.5); LYMPHOCYTES # (AUTO) 2.3 K/uL (0.8-4.8); LYMPHOCYTES % (AUTO) 43.2 % (20.0-44.0); MEAN CORPUSCULAR HGB CONC 32 g/dl (31.0-36.0); MEAN CORPUSCULAR VOLUME 80 fL (80-96); MONOCYTES # (AUTO) 0.5 K/uL (0.1-1.30); MONOCYTES % (AUTO) 8.7 % (2.0-12.0); NEUTROPHILS # (AUTO) 2.2 K/uL (1.8-8.9); NEUTROPHILS % (AUTO) 42.4 % (43.0-81.0); PLATELET COUNT (AUTO) 215 K/uL (150-450); RED BLOOD CELL COUNT(AUTO) 5.09 MIL/uL (4.5-6.0); WHITE BLOOD COUNT (AUTO) 5.2 K/uL (4.3-11.0)
[2023-01-15 14:24] LABS: ALANINE AMINOTRANSFERASE 32 U/L (12-78); ALBUMIN 3.8 g/dL (3.4-5.0); ALKALINE PHOSPHATASE 77 U/L (46-116); ASPARTATE AMINOTRANSFERASE 27 U/L (15-37); BILIRUBIN,DIRECT 0.1 mg/dL (0.0-0.2); BILIRUBIN,TOTAL 0.7 mg/dL (0.2-1.0); CALCIUM, SERUM 9.1 mg/dL (8.5-10.1); CARBON DIOXIDE 26 mmol/L (21-32); CHLORIDE 105 mmol/L (98-107); GLUCOSE 124 mg/dL (74-106); POTASSIUM 3.9 mmol/L (3.5-5.1); SODIUM SERUM 140 mmol/L (136-145); TOTAL PROTEIN, SERUM 7.1 g/dL (6.4-8.2); UREA NITROGEN, BLOOD 12 mg/dL (7-18)
[2023-01-15 14:24] LABS: BILIRUBIN,URINE 1+ (NEGATIVE); COLOR,URINE YELLOW (YELLOW); LEUKOCYTE ESTERASE ,URINE NEGATIVE (NEGATIVE); NITRITE, URINE NEGATIVE (NEGATIVE); PROTEIN,URINE TRACE mg/dl (NEGATIVE); UGLUCOSE NEGATIVE (NEGATIVE)
[2023-01-15 14:36] LABS: ALCOHOL, BLOOD < 3 mg/dL (0-10)
[2023-01-15 15:12] LABS: BACTERIA,URINE None seen /HPF (None Seen); RBC,URINE 0-2 /HPF (0-2); SQUAMOUS EPITHELIAL CELL,UR 0-2 /HPF (None Seen); WBC,URINE 0-2 /HPF (0-3)
[2023-01-15 15:13] LABS: CALCIUM OXALATE CRYSTALS,UR Few /HPF (None Seen); MUCUS,URINE Moderate /LPF (None Seen)
--- NOTE | 2023-01-15 19:43 | NUR ---
ACCEPTED TO [facility] REPORT # [phone] AWAITING CALL BACK FOR [facility] ETA
--- NOTE | 2023-01-15 20:00 | NUR ---
CALLED FOR REPORT AT ACCEPTED TO [facility] # [phone], NO ANSWER. MESSAGE LEFT TO CALL BACK.
--- NOTE | 2023-01-15 20:00 | NUR ---
Patient transported to [facility] in stable condition. Written and verbal after care instructions given. Patient verbalizes understanding of instruction.
[2023-01-15 20:31] VITALS: BP 129/74
== END 2023-01-15 20:00 | disposition short-term general hospital (02) ==
LOC: ER 13:20
DX: R45.851 Suicidal ideations (principal); F20.9 Schizophrenia, unspecified; F17.200 Nicotine dependence, unspecified, uncomplicated; F19.10 Other psychoactive substance abuse, uncomplicated; Z20.822 Contact with and (suspected) exposure to COVID-19; Z59.00 Homelessness unspecified; Z88.0 Allergy status to penicillin
CPT/HCPCS: 99285; 85025; 80048; 80076; 81001; 36415; 87426; 80143; 80320; 80307; C9803; G0480

== ENCOUNTER 2023-02-24 14:26 | Emergency (ER) | payer MEDICAID ==
[~2023-02-24] VITALS: Ht 185.4 cm; Wt 90.7 kg
--- NOTE | 2023-02-24 15:02 | NUR ---
BIBS FOR VOLUNTARY PSYCH HOLD. PT ENDORSES SI WITH PLAN " JUMP OFF TOP OF PARKING STRUCTURE". VITALS ARE STABLE. ALLERGIC TO PENICILLINS. SITTER AT BEDSIDE SUICIDE PRECAUTIONS IN PLACE. PERSONAL BELONGINGS TAKEN AND CHANGED INTO GOWN.
--- NOTE | 2023-02-24 15:03 | NUR ---
URINE COLLECTED AND SENT TO LAB
[2023-02-24 15:40] LABS: BASOPHILS # (AUTO) 0.1 K/uL (0.0-0.2); BASOPHILS % (AUTO) 1.1 % (0.0-2.0); HEMATOCRIT 40 % (39-51); LYMPHOCYTES # (AUTO) 2.2 K/uL (0.8-4.8); MEAN CORPUSCULAR HGB CONC 33 g/dl (31.0-36.0); MEAN CORPUSCULAR VOLUME 82 fL (80-96); MONOCYTES # (AUTO) 0.5 K/uL (0.1-1.30); MONOCYTES % (AUTO) 8.5 % (2.0-12.0); NEUTROPHILS # (AUTO) 3.1 K/uL (1.8-8.9); NEUTROPHILS % (AUTO) 50.4 % (43.0-81.0); PLATELET COUNT (AUTO) 238 K/uL (150-450); RED BLOOD CELL COUNT(AUTO) 4.85 MIL/uL (4.5-6.0); WHITE BLOOD COUNT (AUTO) 6.2 K/uL (4.3-11.0)
[2023-02-24 15:52] LABS: BILIRUBIN,URINE NEGATIVE (NEGATIVE); COLOR,URINE YELLOW (YELLOW); LEUKOCYTE ESTERASE ,URINE NEGATIVE (NEGATIVE); NITRITE, URINE NEGATIVE (NEGATIVE); PROTEIN,URINE NEGATIVE (NEGATIVE); UGLUCOSE NEGATIVE (NEGATIVE); UROBILINOGEN,URINE 0.2 EU/dL (0.2)
[2023-02-24 15:54] LABS: CARBON DIOXIDE 24 mmol/L (21-32); CHLORIDE 100 mmol/L (98-107); CREATININE 0.9 mg/dL (0.6-1.3); GLUCOSE 121 mg/dL (74-106); POTASSIUM 4.3 mmol/L (3.5-5.1); SODIUM SERUM 135 mmol/L (136-145); UREA NITROGEN, BLOOD 12 mg/dL (7-18)
[2023-02-24 16:06] LABS: ALANINE AMINOTRANSFERASE 36 U/L (12-78); ALBUMIN 3.7 g/dL (3.4-5.0); ALCOHOL, BLOOD < 3 mg/dL (0-10); ALKALINE PHOSPHATASE 87 U/L (46-116); ASPARTATE AMINOTRANSFERASE 23 U/L (15-37); BILIRUBIN,DIRECT 0.1 mg/dL (0.0-0.2); BILIRUBIN,TOTAL 0.3 mg/dL (0.2-1.0); TOTAL PROTEIN, SERUM 7.1 g/dL (6.4-8.2)
--- NOTE | 2023-02-24 16:43 | NUR ---
PT IS MEDICALLY CLEARED
--- NOTE | 2023-02-24 16:46 | NUR ---
WAITING COVID RESULT, WILL FAX CLINICALS TO [facility]. FAREED AT [facility] NOTIFIED. PER FAREED ALL [facility] ARE AT [facility] NO ETA AVAILABLE.
--- NOTE | 2023-02-24 17:14 | NUR ---
CLINICALS FAXED TO [facility]
--- NOTE | 2023-02-25 07:20 | NUR ---
received pt asleep, report given by melyssa haynes
--- NOTE | 2023-02-25 10:00 | NUR ---
Breakfast served-tolerated well. Still awaiting acceptance to psych facility
--- NOTE | 2023-02-25 12:16 | NUR ---
Francisco from [facility] here to transport pt to [facility]
[2023-02-25 12:17] VITALS: BP 130/85; TEMP 98.6; O2SAT 98
--- NOTE | 2023-02-25 12:17 | NUR ---
Ambulatory. Stable w/transport
== END 2023-02-25 12:17 ==
LOC: ER 14:33
DX: R45.851 Suicidal ideations (principal); F20.9 Schizophrenia, unspecified; F41.9 Anxiety disorder, unspecified; F17.200 Nicotine dependence, unspecified, uncomplicated; Z88.0 Allergy status to penicillin; Z59.00 Homelessness unspecified; Z20.822 Contact with and (suspected) exposure to COVID-19
CPT/HCPCS: 99285; 85025; 80048; 80076; 81003; 36415; 87426; 80143; 80320; 80307; J3490; A4223; C9803; G0480

== ENCOUNTER 2023-04-11 19:23 | Emergency (ER) | payer MEDICAID ==
[~2023-04-11] VITALS: Ht 185.4 cm; Wt 95.3 kg
[2023-04-11 20:03] VITALS: TEMP 98.2
[2023-04-11 20:33] LABS: BASOPHILS # (AUTO) 0.1 K/uL (0.0-0.2); BASOPHILS % (AUTO) 1.2 % (0.0-2.0); EOSINOPHILS # (AUTO) 0.2 K/uL (0.0-0.7); EOSINOPHILS % (AUTO) 2.3 % (0.0-6.0); HEMATOCRIT 36 % (39-51); HEMOGLOBIN 11.6 g/dL (13.5-17.5); LYMPHOCYTES # (AUTO) 2.3 K/uL (0.8-4.8); LYMPHOCYTES % (AUTO) 31.9 % (20.0-44.0); MEAN CORPUSCULAR HEMOGLOBIN 27 PG (26.0-33.0); MEAN CORPUSCULAR HGB CONC 32 g/dl (31.0-36.0); MEAN CORPUSCULAR VOLUME 83 fL (80-96); MONOCYTES # (AUTO) 0.8 K/uL (0.1-1.30); MONOCYTES % (AUTO) 10.6 % (2.0-12.0); NEUTROPHILS # (AUTO) 3.8 K/uL (1.8-8.9); PLATELET COUNT (AUTO) 268 K/uL (150-450); RED BLOOD CELL COUNT(AUTO) 4.37 MIL/uL (4.5-6.0); RED CELL DISTRIBUTION WIDTH 15.7 % (11.5-15.0); WHITE BLOOD COUNT (AUTO) 7.1 K/uL (4.3-11.0)
[2023-04-11 20:43] LABS: APPEARANCE,URINE CLEAR (CLEAR); BILIRUBIN,URINE NEGATIVE (NEGATIVE); BLOOD, URINE NEGATIVE Ery/uL (NEGATIVE); COLOR,URINE YELLOW (YELLOW); KETONES,URINE TRACE mg/dL (NEGATIVE); LEUKOCYTE ESTERASE ,URINE NEGATIVE (NEGATIVE); NITRITE, URINE NEGATIVE (NEGATIVE); PROTEIN,URINE NEGATIVE (NEGATIVE); UGLUCOSE NEGATIVE (NEGATIVE); UROBILINOGEN,URINE 0.2 EU/dL (0.2)
[2023-04-11 20:47] LABS: RBC,URINE 0-2 /HPF (0-2); WBC,URINE 0-2 /HPF (0-3)
[2023-04-11 20:48] LABS: ADD URINE CULTURE NO; BACTERIA,URINE None seen /HPF (None Seen); SQUAMOUS EPITHELIAL CELL,UR 0-2 /HPF (None Seen)
[2023-04-11 20:53] LABS: CARBON DIOXIDE 24 mmol/L (21-32); CHLORIDE 107 mmol/L (98-107); CREATININE 1.1 mg/dL (0.6-1.3); GLUCOSE 116 mg/dL (74-106); POTASSIUM 3.9 mmol/L (3.5-5.1); SODIUM SERUM 141 mmol/L (136-145); UREA NITROGEN, BLOOD 11 mg/dL (7-18)
[2023-04-11 20:59] LABS: ACETAMINOPHEN 0 ug/ml (10-30); ALANINE AMINOTRANSFERASE 26 U/L (12-78); ALBUMIN 3.8 g/dL (3.4-5.0); ALCOHOL, BLOOD < 3 mg/dL (0-10); ALKALINE PHOSPHATASE 78 U/L (46-116); ASPARTATE AMINOTRANSFERASE 13 U/L (15-37); BILIRUBIN,DIRECT 0.1 mg/dL (0.0-0.2); BILIRUBIN,TOTAL 0.2 mg/dL (0.2-1.0); SALICYLATE 2.5 mg/dL (2.8-20.0); TOTAL PROTEIN, SERUM 7.4 g/dL (6.4-8.2)
[2023-04-11 20:59] LABS: AMPHETAMINE, URINE NEGATIVE (NEGATIVE); BARBITURATE, URINE NEGATIVE (NEGATIVE); BENZODIAZEPINE, URINE NEGATIVE (NEGATIVE); CANNABINOID, URINE POSITIVE (NEGATIVE); COCCAINE, URINE NEGATIVE (NEGATIVE); OPIATE, URINE NEGATIVE (NEGATIVE); PHENCYCLIDINE SCREEN,URINE NEGATIVE (NEGATIVE)
[2023-04-12 06:01] VITALS: BP 147/51; O2SAT 99
== END 2023-04-12 06:02 | disposition home or self-care (01) ==
LOC: ER 19:24
DX: R45.851 Suicidal ideations (principal); F20.9 Schizophrenia, unspecified; F41.9 Anxiety disorder, unspecified; F17.200 Nicotine dependence, unspecified, uncomplicated; Z88.0 Allergy status to penicillin; Z59.00 Homelessness unspecified; Z20.822 Contact with and (suspected) exposure to COVID-19
CPT/HCPCS: 99285; 85025; 80048; 80076; 81001; 36415; 87426; 80143; 80320; 80307; C9803; G0480

== ENCOUNTER 2023-04-12 10:15 | Emergency (ER) | payer MEDICAID ==
[~2023-04-12] VITALS: Ht 185.4 cm; Wt 102.1 kg
[2023-04-12 12:27] VITALS: BP 140/75; TEMP 98.6; O2SAT 99
== END 2023-04-12 12:28 ==
LOC: ER 10:15
DX: R45.851 Suicidal ideations (principal); F20.9 Schizophrenia, unspecified; F41.9 Anxiety disorder, unspecified; F17.200 Nicotine dependence, unspecified, uncomplicated; F15.90 Other stimulant use, unspecified, uncomplicated; Z59.00 Homelessness unspecified; Z88.0 Allergy status to penicillin